=== PATIENT | male | born 1975 | race African-American/Black ===

== ENCOUNTER 2017-08-17 12:28 | Emergency (ER) | payer MEDICAID ==
[~2017-08-17] VITALS: Ht 180.3 cm; Wt 70.9 kg
[2017-08-17 12:33] VITALS: BP 132/78
[2017-08-17] MEDS ORDERED: CEFTRIAXONE 250 MG ONE (13:17)
[2017-08-17] MEDS ORDERED: AZITHROMYCIN 500 MG TABLET ONE (13:17)
[2017-08-17] MEDS ORDERED: CEFTRIAXONE 250 MG IM ONE (13:30)
[2017-08-17] MEDS ORDERED: AZITHROMYCIN 500 MG TABLET PO ONE (13:30)
== END 2017-08-17 14:56 | disposition home or self-care (01) ==
LOC: ED 14:49
DX: N34.1 Nonspecific urethritis (principal)
CPT/HCPCS: 81003; 87491; 87591; 96372; 99284; J0696